=== PATIENT | female | born 1965 | race African-American/Black ===

== ENCOUNTER 2016-08-29 22:44 | Emergency (ER) | payer BC ==
[~2016-08-29] VITALS: Ht 154.9 cm; Wt 84.8 kg
[2016-08-29] MEDS ORDERED: PENICILLIN VK 500 MG (22:59)
--- NOTE | 2016-08-29 23:06 | NUR ---
Pt ambulated to room with steady gait. Pt thinks she might be having an allergic reaction to pcn she is taking for a tooth infection. Airway patent, no resp distress noted. Dr. Woods at bedside for MSE
[2016-08-29] MEDS ORDERED: diphenhydrAMINE 50 MG/1 ML VIAL IM ONE (23:15)
--- NOTE | 2016-08-29 23:23 | NUR ---
Pt medicated for allergic reaction, will monitor for effects of medication.
[2016-08-29] MEDS ORDERED: diphenhydrAMINE 50 MG/1 ML VIAL ONE (23:26)
--- NOTE | 2016-08-29 23:46 | NUR ---
Pt stable for discharge per MD. Pt given ACI. Pt verbalized understanding of dc instructions. Pt ambulated out of er with steady gait and ride home.
[2016-08-29 23:48] VITALS: BP 138/69
== END 2016-08-29 23:49 | disposition home or self-care (01) ==
LOC: ER 22:45
DX: T78.40XA Allergy, unspecified, initial encounter (principal); X58.XXXA Exposure to other specified factors, initial encounter; L50.0 Allergic urticaria
CPT/HCPCS: A4663; J1200

== ENCOUNTER 2021-12-20 21:44 | Emergency (ER) | payer SELFPAY ==
[~2021-12-20] VITALS: Ht 154.9 cm; Wt 114.8 kg
[~2021-12-20 21:44] MED LIST: PENICILLIN VK 500 MG
[2021-12-20] MEDS ORDERED: IV NORMAL SALINE 1000 ML BAG IV ONE (22:15)
[2021-12-20 22:50] LABS: HEMATOCRIT 35.5 % (31.2-41.9); MEAN CORPUSCULAR HEMOGLOBIN 26.1 uug (24.7-32.8); MEAN CORPUSCULAR VOLUME 80.3 fL (75.5-95.3); PLATELET COUNT (AUTO) 143 K/uL (179-408)
[2021-12-20 22:58] LABS: CARBON DIOXIDE 27 mmol/L (21-32); CHLORIDE 102 mmol/L (98-107); CREATININE 0.7 mg/dL (0.6-1.3); GLUCOSE 147 mg/dL (74-106); POTASSIUM 3.5 mmol/L (3.5-5.1); UREA NITROGEN, BLOOD 10 mg/dL (7-18)
[2021-12-20 23:06] LABS: ALANINE AMINOTRANSFERASE 18 U/L (14-59); ALKALINE PHOSPHATASE 55 U/L (50-136); ASPARTATE AMINOTRANSFERASE 20 U/L (15-37); BILIRUBIN,DIRECT < 0.1 mg/dL (0.0-0.2); BILIRUBIN,TOTAL 0.2 mg/dL (0.2-1.0); TOTAL PROTEIN, SERUM 6.7 g/dL (6.4-8.2)
[2021-12-20 23:28] LABS: MAGNESIUM 1.8 mg/dL (1.8-2.4)
[2021-12-20] MEDS ORDERED: CYANOCOBALAMIN 1000 MCG/ML VIAL IM ONE (23:45)
[2021-12-21] MEDS ORDERED: CYANOCOBALAMIN 1000 MCG/ML VIAL ONE
[2021-12-21 00:43] VITALS: BP 130/88
--- NOTE | 2021-12-21 00:43 | NUR ---
Patient discharged to home in stable condition. Written and verbal after care instructions given. Patient verbalizes understanding of instructions. Stressed follow up or return to ER for worsening s/s.
== END 2021-12-21 00:44 | disposition home or self-care (01) ==
LOC: ER 21:47
DX: R42 Dizziness and giddiness (principal); E08.65 Diabetes mellitus due to underlying condition with hyperglycemia; E83.42 Hypomagnesemia; E11.9 Type 2 diabetes mellitus without complications; R03.0 Elevated blood-pressure reading, without diagnosis of hypertension
CPT/HCPCS: 99285; 96360; 71045; 80076; 80048; 82607; 83036; 83735; 85025; 85379; 84484; 36415; 93005; 83605; 96372; J7040; J3420